=== PATIENT | male | born 1945 | race Caucasian/White ===

== ENCOUNTER → 2018-01-20 09:58 | Outpatient (CLI) | payer MEDICARE, SELFPAY ==
--- NOTE | 2018-01-20 10:04 | EKG12_ITS ---
Test Reason : A FLUTTER Blood Pressure : / mmHG Vent. Rate : 103 BPM Atrial Rate : 103 BPM P-R Int : 172 ms QRS Dur : 090 ms QT Int : 354 ms P-R-T Axes : 091 -63 053 degrees QTc Int : 463 ms Atrial flutter with variable block Left axis deviation Pulmonary disease pattern Inferior infarct , age undetermined Abnormal ECG Confirmed by YSOHI DOWNEY, FERMIN ([id number]), book or script editor LYLE CASON ([id number]) on 01/25/2018 3:58:10 PM Referred By: YOSHI Confirmed By:FERMIN BELLE MD
== END ==
PROVIDERS: Family Provider Family Medicine; Visit Provider Internal Medicine Cardiovascular Disease
DX: I48.92 Unspecified atrial flutter (principal)
CPT/HCPCS: 93005

== ENCOUNTER 2018-02-01 05:55 | Day surgery (SDC) | payer MEDICARE, SELFPAY ==
[2018-02-01] VITALS (19 sets, daily range): BP systolic 73–101; BP diastolic 38–79; PULSE 51–101; RESP 16–18; TEMP 35.4–36.1; O2SAT 93–98; BMI 31.7
[2018-02-01 06:31] LABS: Bedside Glucose 170 mg/dL (70-110)
--- NOTE | 2018-02-01 07:57 | COLBX_PTH ---
PATIENT: JONNY HERNANDEZ LOC: EN U#:[id number] AGE/SX: 72/M ROOM: RE02/01/[address]: Dr. Marco Silva MD : 1945 BED: DIS: 02/01/2018 SPEC #: [id number] RECD: 02/01/18 13:07 STATUS: ALFONSO EZ #: [id number] KATHY: 02/01/18 07:[address]: Marco Silva DEPT: SURGICAL PATHOLOGY RECD BY: Santosh Brunner ENTERED: 02/01/18 14:21 SP TYPE: COLON BX OTHR DR: MD Dr. Ashish Case III, Jr., MD Tissues: Ascending colon Procedures: Surgery Specimen Level IV HEADER OPERATION: Colonoscopy with polypectomy PRE-OP DIAGNOSIS: Rectal bleeding TISSUE SUBMITTED: Ascending colon polyp MICROSCOPIC DIAGNOSIS Ascending colon polyp, polypectomy: Fragments of tubular adenoma. SJ:henna 02/02/18 MICROSCOPIC DESCRIPTION Slides are reviewed. GROSS DESCRIPTION Received in fixative is one container labeled with the patient's name and designated ascending colon polyp. The specimen consists of multiple irregular fragments of light nixon soft tissue that in aggregate measure 0.5 x 0.5 x 0.1 cm. The specimen is totally submitted in one cassette. / AM:henna 02/01/18 TC:1 CPT: 23269
--- NOTE | 2018-02-01 08:11 | PCM.OPRPT ---
Problem List (1) Personal history of colonic polyps Status: Acute Report of Operation Date of Procedure: 02/01/18 Pre-Operative Diagnosis: Personal history of colon polyps Post-Operative Diagnosis: Sessile 1.5 cm diameter polyp ascending colon. Scattered pancolonic diverticulosis with concentrated diverticulosis of the sigmoid colon Surgery/Procedure Performed:: Colonoscopy with hot snare polypectomy Description of Surgical Findings:: Timeout and informed consent was obtained. 72-year-old gentleman was taken to the endoscopy suite. He was placed in a left lateral decubitus position. Because of relative hypotension preoperatively he received 1 L of IV fluid was already on his second liter fluid. Throughout the procedure in aliquots he received a total of 75 mg Demerol and 2.5 mg of Versed is intravenous sedation. Digital rectal exam demonstrated some mild hemorrhoidal changes. Prostate seemed to be very smooth and diminutive. Flexible colonoscope inserted the rectum advanced to the left colon transverse colon with some transabdominal pressure is advanced to the cecum. The cecum ileocecal valve area was nicely achieved. Bowel prep was adequate there was still some liquid stool located throughout the colon but that could be mostly aspirated. As the scope was withdrawn in the ascending colon close to the hepatic flexure there was a sessile 1.5 cm diameter polyp. Photograph was obtained. A hot snare was used to piecemeal resect this polyp. Because of the location I did place a hemostatic clip. I felt that good approximation was achieved. The scope was then further withdrawn through the transverse colon descending colon and sigmoid colon. Diverticulosis identified in the sigmoid. The scope was retroflexed in the rectum anorectal verge and hemorrhoids noted. No active bleeding. Excess fluid and air was aspirated free the procedure was completed with the patient tolerating it well. Impression Sessile polyp of the ascending colon close to the hepatic flexure. Pancolonic diverticulosis with concentrated diverticulosis of the sigmoid. Mild hemorrhoidal changes. The patient will be notified of pathology results as they become available. Because of the size positioning and flat nature of the polyp I am recommending a follow-up colonoscopy at 1 year. The patient had both his clopidogrel and Coumadin preprocedure. These will be reinitiated and appropriate timeline. He has relative hypotension ongoing treatment with saline. Cc: Dr. Ashish Silva, III Indications were given at 0744. Procedure started 0747. Cecum reached at 0752.1. Procedure was completed at 0807. Marco Silva M.D., F.A.C.S. Type of Anesthesia:: IV Sedation
== END 2018-02-01 09:50 | disposition home or self-care (01) ==
LOC: EN 05:58 → AC 05:58
PROVIDERS: Family Provider Family Medicine; Visit Provider Surgery
PROC: 0DJD8ZZ Inspection of Lower Intestinal Tract, Via Natural or Artificial Opening Endoscopic (ICD-10-PCS; CPT 45378; principal; 2018-02-01 06:55)
DX: D12.2 Benign neoplasm of ascending colon (principal); K57.30 Diverticulosis of large intestine without perforation or abscess without bleeding; I95.9 Hypotension, unspecified; K64.9 Unspecified hemorrhoids; I11.0 Hypertensive heart disease with heart failure; I50.22 Chronic systolic (congestive) heart failure; I25.10 Atherosclerotic heart disease of native coronary artery without angina pectoris; E11.9 Type 2 diabetes mellitus without complications; I48.91 Unspecified atrial fibrillation; I48.92 Unspecified atrial flutter; I25.5 Ischemic cardiomyopathy; E78.5 Hyperlipidemia, unspecified; M10.9 Gout, unspecified; E66.9 Obesity, unspecified; Z79.01 Long term (current) use of anticoagulants; Z79.84 Long term (current) use of oral hypoglycemic drugs; Z79.02 Long term (current) use of antithrombotics/antiplatelets; Z79.899 Other long term (current) drug therapy; Z86.010 Personal history of colon polyps; I25.2 Old myocardial infarction; Z87.891 Personal history of nicotine dependence; Z95.5 Presence of coronary angioplasty implant and graft
CPT/HCPCS: 45385; 82962; 88305; J7120

== ENCOUNTER 2019-02-14 07:09 | Day surgery (SDC) | payer MEDICARE, SELFPAY ==
[2019-02-03 13:56] VITALS: BMI 30.1
[2019-02-14] VITALS (10 sets, daily range): BP systolic 93–117; BP diastolic 69–91; PULSE 71–92; RESP 14–18; TEMP 36.3–36.5; O2SAT 93–100; BMI 30.7
[2019-02-14 07:46] LABS: Bedside Glucose 117 mg/dL (70-110)
--- NOTE | 2019-02-14 08:30 | COLBX_PTH ---
PATIENT: JONNY HERNANDEZ LOC: EN U#:[id number] AGE/SX: 73/M ROOM: RE02/14/[address]: Dr. Marco Silva MD : 1945 BED: DIS: 02/14/2019 SPEC #: [id number] RECD: 02/14/19 09:21 STATUS: ALFONSO EZ #: [id number] KATHY: 02/14/19 08:[address]: Marco Silva DEPT: SURGICAL PATHOLOGY RECD BY: Frandy Desir ENTERED: 02/14/19 11:26 SP TYPE: COLON BX OTHR DR: Dr. Ashish Silva III, MD Tissues: Rectum, NOS Procedures: Surgery Specimen Level IV HEADER OPERATION: Colonoscopy (MOD) PRE-OP DIAGNOSIS: Personal history of colon polyps TISSUE SUBMITTED: Biopsy polyp proximal rectum MICROSCOPIC DIAGNOSIS Proximal rectal polyp, biopsy: Fragments of hyperplastic polyp. AM:henna 3/27/19 MICROSCOPIC DESCRIPTION Slides are reviewed. GROSS DESCRIPTION Received in fixative is one container labeled with the patient's name and designated biopsy polyp proximal rectum. The specimen consists of two irregular fragments of light nixon soft tissue that in aggregate measure 0.5 x 0.3 x 0.1 cm. The specimen is totally submitted in one cassette. / SJ:rg 02/14/19 TC:5 CPT: 83488
--- NOTE | 2019-02-14 09:17 | OP.ENDO_ITS ---
02/14/2019 Ashish Silva [address] [place] [address] Re : Colonoscopy procedure for Tai Holland Dear Dr. Silva This procedure was performed on Thursday, February 14, 2019. My impressions and recommendations are as follows: Impressions : - Decreased sphincter tone and internal hemorrhoids (Grade I) found on digital rectal exam. - Diverticulosis in the entire examined colon. There was no evidence of diverticular bleeding. - The examination was otherwise normal. Small rectal polyp removed - No specimens collected. Recommendations : - Discharge patient to home. - Resume previous diet. - Continue present medications. My office will call with results - Repeat colonoscopy in 5 years for surveillance. My findings are described in the full procedure note, which is enclosed. If I can be of further assistance, please feel free to contact me at Doctor phone number(s): Work: . Sincerely, Marco Silva MD 02/14/2019 9:16:53 AM This report has been signed electronically.
== END 2019-02-14 10:06 | disposition home or self-care (01) ==
LOC: EN 07:10 → AC 07:11
PROVIDERS: Family Provider Family Medicine; PCP Family Medicine; Referring Provider Surgery; Visit Provider Surgery
PROC: 0DJD8ZZ Inspection of Lower Intestinal Tract, Via Natural or Artificial Opening Endoscopic (ICD-10-PCS; CPT 45378; principal; 2019-02-14 08:25)
DX: Z12.11 Encounter for screening for malignant neoplasm of colon (principal); K62.1 Rectal polyp; K64.0 First degree hemorrhoids; K57.30 Diverticulosis of large intestine without perforation or abscess without bleeding; I11.0 Hypertensive heart disease with heart failure; I50.22 Chronic systolic (congestive) heart failure; I25.10 Atherosclerotic heart disease of native coronary artery without angina pectoris; I25.5 Ischemic cardiomyopathy; I48.92 Unspecified atrial flutter; E11.9 Type 2 diabetes mellitus without complications; E78.5 Hyperlipidemia, unspecified; Z79.01 Long term (current) use of anticoagulants; Z79.84 Long term (current) use of oral hypoglycemic drugs; Z79.02 Long term (current) use of antithrombotics/antiplatelets; Z79.899 Other long term (current) drug therapy; Z86.010 Personal history of colon polyps; I25.2 Old myocardial infarction; Z87.891 Personal history of nicotine dependence; Z95.5 Presence of coronary angioplasty implant and graft
CPT/HCPCS: 45380; 82962; 88305; 99152; 99153; J7120

== ENCOUNTER → 2019-02-27 06:59 | Outpatient (CLI) | payer MEDICARE, SELFPAY ==
[2019-02-03 13:56] VITALS: BMI 30.1
[2019-02-14 07:28] VITALS: BMI 30.7
--- NOTE | 2019-02-27 09:02 | STRESSREP ---
Stress Test Report Exercise myocardial perfusion stress test. 73-year-old man with a history of coronary artery disease. Medications: Metformin, Lipitor, Plavix, apixaban, carvedilol, lisinopril. Stress protocol: Resting EKG demonstrates normal sinus rhythm with a rate of 73 bpm normal intervals are noted. Frequent premature atrial complexes are noted. The patient exercised according to regular Daniel protocol for total duration of 4 minutes and 12 seconds the maximum heart rate attained was 150 bpm which was 103% maximum predicted heart rate the maximum workload was 6 metabolic equivalents. At rest there were no ST or T wave changes noted suggest ischemia at peak exercise upsloping ST changes were noted with no meet the criteria for ischemia. The resting blood pressure 114/82 with a peak blood pressure 140/80 mmHg. Myocardial perfusion protocol. 14.4 mCi of technetium 99m sestamibi was injected at rest. Patient exercised according to regular Daniel protocol for total duration of 4 minutes and 12 seconds at peak exercise 44.7 mCi of technetium 99m sestamibi was injected stress images were obtained stress and rest images were reconstructed and compared in the short axis vertical and horizontal long axis. Gated images were also obtained Perfusion SPECT analysis: Review of the stress images demonstrate normal cardiac silhouette size. There is a defect noted involving the apex on the stress as well as reduction of perfusion noted involving the inferior wall from base to apex. The anterior wall and anterolateral wall appear to be well perfused. The resting images demonstrate mild improvement involving the apex as well as the anterior septal wall. In the above suggest a mild amount of apical and anteroseptal ischemia. Gated SPECT analysis: The gated ejection fraction is noted to be 32% suggesting a cardiomyopathy. Conclusion: Cardiomyopathy. Estimated ejection fraction 32%. Previous inferior infarct. Mild anterior septal and mid inferior ischemia.
== END ==
PROVIDERS: Family Provider Family Medicine; Referring Provider Internal Medicine Cardiovascular Disease; Visit Provider Internal Medicine Cardiovascular Disease
DX: I25.10 Atherosclerotic heart disease of native coronary artery without angina pectoris (principal); Z95.5 Presence of coronary angioplasty implant and graft
CPT/HCPCS: 78452; 93017; A9500; A4216

== ENCOUNTER → 2019-03-01 10:09 | Outpatient (CLI) | payer MEDICARE, SELFPAY ==
[2019-02-14 07:28] VITALS: BMI 30.7
[2019-03-01 10:43] LABS: Absolute Lymphocyte Count 1.36 X10^3/ul (0.83-4.51); Absolute Neutrophil Count 4.7 X10^3/uL (2.0-7.7); Basophil# 0.02 X10^3/uL; Basophil% 0.3 % (0-1); Eosinophil# 0.14 X10^3/uL; Hematocrit 49.7 % (40-54); Hemoglobin 16.3 g/dl (13.0-16.5); Lymphocyte # 1.36 X10^3/ul (4.0); Lymphocyte % 19.7 % (19-41); Mean Corp Hgb Conc 32.8 g/gl (32-36); Mean Corpuscular Hgb 29.5 pg (27.0-32.0); Mean Corpuscular Volume 89.9 fL (80-94); Mean Platelet Vol. 9.7 fl (6.2-12.0); Monocyte# 0.62 X10^3/uL; Neutrophil # 4.74 X10^3/uL (2.7-7.7); Neutrophil % 68.9 % (47-70); Platelet Count 177 K/mm3 (150-450); RBC Distribution Width SD 49.3 fl (35.1-43.9); Red Blood Count 5.53 M/mm3 (4.6-6.2); White Blood Count 6.9 K/mm3 (4.4-11.0)
[2019-03-01 10:47] LABS: POSITIVE COUNT NO; POSITIVE DIFFERENTIAL NO; POSITIVE MORPHOLOGY NO
[2019-03-01 11:00] LABS: International Normalized Ratio 1.4; Partial Thromboplast Time 30.1 Seconds (24.1-36.2); Prothrombin Time (Protime)PT. 17.1 SECONDS (11.7-14.9)
[2019-03-01 11:25] LABS: Anion Gap 8 (5-15); BUN 16 mg/dL (7-18); BUN/Creat Ratio 13.6 RATIO (10-20); Calcium,Total 9.3 mg/dL (8.5-10.1); Chloride 106 mmol/L (98-107); Creatinine, Serum 1.18 mg/dL (0.70-1.30); EST Glomerular Filtration Rate 64 mL/min (>60); Est Glom Filt Rate - Afr Amer 77 mL/min (>60); Glucose 197 mg/dL (74-106); Potassium 4.5 mmol/L (3.5-5.1); Sodium Level 139 mmol/L (136-145)
== END ==
PROVIDERS: Family Provider Family Medicine; Referring Provider Internal Medicine Cardiovascular Disease; Visit Provider Internal Medicine Cardiovascular Disease
DX: I11.0 Hypertensive heart disease with heart failure (principal); I50.22 Chronic systolic (congestive) heart failure; I25.5 Ischemic cardiomyopathy; I25.10 Atherosclerotic heart disease of native coronary artery without angina pectoris; R94.39 Abnormal result of other cardiovascular function study; I25.2 Old myocardial infarction; Z95.5 Presence of coronary angioplasty implant and graft
CPT/HCPCS: 36415; 80048; 85025; 85610; 85730

== ENCOUNTER 2019-03-06 09:04 | Day surgery (SDC) | payer MEDICARE, SELFPAY ==
[2019-02-14 07:28] VITALS: BMI 30.7
--- NOTE | 2019-03-01 09:59 | RAD_ITS ---
STUDY: X-RAY CHEST REASON FOR EXAM: Male, 73 years old. Abnormal stress TECHNIQUE: Frontal and lateral views of the chest. COMPARISON: 10/26/2016 FINDINGS: Left basilar atelectasis There is no demonstrated pleural abnormality. Normal size heart. Normal mediastinum and rafal. Normal visualized pulmonary arteries. There is atherosclerotic tortuosity of the aortic arch and descending thoracic aorta. Normal visualized thoracic spine. Normal visualized ribs, clavicles, and shoulders. There is no demonstrated abnormality of the visualized soft tissue structures of the upper abdomen. RAD/Chest PA and Lateral IMPRESSION: Left basilar atelectasis Electronically Signed: Justino Stephenson MD at 10:26 EDT Tel , Service support ,
[2019-03-02 08:35] VITALS: BMI 30.5
--- NOTE | 2019-03-06 10:38 | CL.D_ITS ---
Patient Name: JONNY HERNANDEZ Study Date: 03/06/2019 Performing: Manperet Thompson MD Ht: 72.04 inches 183 cm : 1945 Wt: 224.87 lbs 102 kg Age: 73 Gender: male BSA: 2.24 PROCEDURE(S) PERFORMED MI01-JBR/COR/LV CLINICAL PROFILE AND INDICATIONS Indications: Cardiac Arrythmia Heart Failure: None Stress/Imaging Date: 02/27/2019Stress Test with SPECT MPI: Positive Intermediate Risk CAD Presentations: No Sxs, no angina. CONCLUSIONS Moderate coronary artery disease noted in the left circumflex artery, previously stented LAD which is patent, first diagonal vessel with moderately severe disease. RECOMMENDATIONS Medical therapy DESCRIPTION OF PROCEDURE The patient arrived to the procedure lab. The risks and benefits of the procedure as well as a full d escription of our services here and current unavailability of surgical backup were fully explained to the patient and/or their significant other prior to the catheterization. The Timeout was completed, verifying the correct patient and procedure. The patient's procedural site was prepped and draped in the usual fashion. Local anesthetic was given subcutaneously to right radial region with Lidocaine 2% . Using a modified Seldinger technique, arterial access was obtained via the right radial artery, a 6 Fr sheath was inserted. Left Coronary Artery selective angiography was performed in multiple views u sing a 5 Fr. 4.0 [place] catheter. Right Coronary Artery selective angiography was then performed in mu ltiple views using a 5 Fr. 4.0 [place] catheter. Left Ventriculography was performed in SKY projection using a 5 Fr. [place] catheter. LV to AO pullback pressures were then recorded.The arterial sheath was pulled and a TR Band was applied for hemostasis, 12 cc of air CORONARY ANGIOGRAPHY DOMINANCE: Right Dominant LEFT HEART ASSESSMENT Left Ventricular Ejection Fraction: by LV Gram 45 % Global Hypokinesis - Mild Depressed Left Ventricular systolic function LEFT MAIN: Angiographically normal LEFT ANTERIOR DECENDING ARTERY: Previously placed stent is patent MID LAD: Previously placed stent is patent DIAGONAL 1: Mid - 70 % Stenosis CIRCUMFLEX ARTERY: PROX CIRC: ectactic MID CIRC: Moderate luminal irregularities up to 50% RIGHT CORONARY ARTERY: Mild luminal irregularities less than 30% COMPLICATIONS No Complications PROCEDURE MEDICATIONS Versed 1 mg IV Fentanyl 50 mcg IV Oxygen: 2 L/min via nasal cannula Heparin diluted in 23cc Heparinized saline. Patient given 10cc IA of this solution. 03/06/2019 10:04: 02 Verapamil 2.5mg, Ntg 100mcgs, 2000 units of Heparin diluted in 23cc Heparinized saline. Patient give n 10cc IA of this solution. 03/06/2019 10:04:02 SUMMARY OF HEMODYNAMIC DATA Time AIR REST ECG 09:32:03 AO 70/49 (58) SA 10:06:49 AO 81/55 (64) 10:07:00 AO 91/58 (69) 10:07:06 AO 111/61 (81) 10:08:19 LV 102/0, 9 10:17:17 LV 105/1, 13 10:17:23 LV 110/1, 12 10:19:30 LV 111/2, 18 10:19:36 LVp 108/1, 11 10:19:46 AOp 112/64 (86) 10:19:51 Signed By Manpreet Thompson MD On 03/06/2019 10:38:52 AM Signed By Manpreet Thompson MD On 03/06/2019 10:38:13 AM Manpreet Thompson MD
--- NOTE | 2019-03-06 14:51 | CON.PCM_ITS ---
Reason for Consult Date of Consultation: 03/06/19 Reason for Consultation: Cardiomyopathy History of Present Illness: JONNY HERNANDEZ, is a 73 M who presents to the hospital for a pre-cardiac catheterization evaluation visit.. He is a gentleman with a history of coronary artery disease status post angioplasty and stenting of his left anterior descending artery in September 2016, he also has a history of hypertension and atrial fibrillation status post DC cardioversion in 2016. He returns for routine follow-up visit he denies any chest pain or shortness breath or paroxysmal nocturnal dyspnea pedal edema is been compliant with his medications. He is not had any neck arm or jaw discomfort to suggest angina. He has had no dizziness or diaphoresis near syncope or syncope. His physical exam today demonstrates clear lung huber irregular rate and rhythm and no pedal edema. Had an echocardiogram done which demonstrated global reduction in left ventricular systolic function. Past Medical History Allergies/Adverse Reactions: Allergies Penicillins Allergy (Verified 03/02/19 08:37) Hives Home Medications: Ambulatory Orders Medication Instructions Recorded Glipizide/Metformin HCl 1 tab PO DAILY 10/12/16 [Glipizide-Metformin 5-500 mg] Glipizide/Metformin HCl 2 tab PO QHS 10/12/16 [Glipizide-Metformin 5-500 mg] Atorvastatin Calcium [Lipitor] 80 mg PO QHS 10/26/16 Clopidogrel Bisulfate [Plavix] 75 mg PO DAILY 10/26/16 Cholecalciferol (Vitamin D3) 5,000 unit PO DAILY 03/19/17 [Vitamin D3] apixaban 5 mg tablet 5 mg PO BID #180 tab 02/02/18 carvedilol 6.25 mg tablet 6.25 mg PO BID 07/27/18 lisinopril 5 mg tablet 5 mg PO DAILY 07/27/18 sitagliptin 50 mg tablet 100 mg PO DAILY tab 07/27/18 aspirin 81 mg tablet,delayed 81 mg PO DAILY 02/28/19 release Past Medical History (Chronic Problems): Chronic Problems (Last Updated 03/06/19 @ 12:03 by Samira Fisher) Personal history of colonic polyps (Chronic) Chronic systolic (congestive) heart failure (Chronic) History of coronary artery stent placement (Chronic 10/14/16) PCI-EDIN to LAD w/ 2.5 x 20 mm and 3.0 x 8 mm Synergy Stents 10/14/16 Atherosclerotic heart disease of [place] coronary artery without angina pectoris (Chronic) PCI-EDIN to LAD w/ 2.5 x 20 mm and 3.0 x 8 mm Synergy Stents 10/14/16 Ischemic cardiomyopathy (Chronic) Hyperlipidemia (Chronic) Hx of non-ST elevation myocardial infarction (NSTEMI) (Chronic) Atrial flutter (Chronic) Essential (primary) hypertension (Chronic) DM2 (diabetes mellitus, type 2) (Chronic) Surgical History: TURP - *Family History Paternal Family History: Family History (Last Reviewed 02/03/19 @ 13:55 by Veda Puente) Father CAD (coronary artery disease) Brother CAD (coronary artery disease) Myocardial infarction History Items: Diabetes Sibling Family History: Family History (Last Reviewed 02/03/19 @ 13:55 by Veda Puente) Father CAD (coronary artery disease) Brother CAD (coronary artery disease) Myocardial infarction History Items: Diabetes Smoking Status: Former smoker Alcohol: None Drugs: None Review of Systems - Review of Systems General: Denies: Fever, Night Sweats, Fatigue HEENT: Denies: Vision Change Cardiovascular: Reports: Shortness of Breath, Shortness of Breath with Exertion, Palpitations. Denies: Chest Discomfort, Orthopnea, PND, Peripheral Edema, Lightheadedness, Dizziness, Near Syncope, Syncope Respiratory: Denies: Cough, Sputum Production, Hemoptysis Gastrointestinal: Denies: Hematemesis, Hematochezia, Melena Genitourinary: Denies: Dysuria, Hematuria Skin: Denies: Rash Psychiatric: Denies: Anxiety Endocrine: Denies: Unexplained Weight Loss Hematologic/ Lymphatic: Denies: Anemia Subjectve: gentleman in no apparent distress Objective: Weight: 225 lb Body Mass Index (BMI) 30.5 General: Awake, Alert, Oriented x 3 HEENT: PERRL, EOMI, Sclera Non Icteric Neck: Supple, Good ROM, No Lymph Node Enlargement Lungs: Clear to auscultation Cardiovascular: Irregular Rhythm, Normal S1, Normal S2, No Murmurs, No Rubs, No Gallops Vascular: No Carotid Bruits, Normal Femoral Pulses, Normal Radial Pulses, Normal Dorsalis Pedal Pulse, Normal Posterior Tibial Pulses Abdomen: Bowel Sounds Present, Soft, Non Tender, No HSM, No Organomegaly Extremities: No Cyanosis, No Clubbing, No edema Musculoskeletal: No Erythema Skin: No Ulcers Neurological: No Focal Motor or Sensory Deficit Psych/Mental Status: Appropriate Rhythm: EKG: ECHO: Stress Test: Cardiac Cath: PCI: CT Surgery: Holter monitor: EPS: PPM: CXR: Chest CT Scan: Assessment/Plan 1. Cardiomyopathy * He does have a cardiomyopathy the etiology of which is not entirely clear he did have previous LAD stenosis which was angioplastied and also has atrial fibrillation. The present cardiac catheterization is be undertaken to assess his anatomy and to guide therapy. Depending on the findings further recommendations will be made. * * Thank you for allowing me to participate in the care of your patient. Please don't hesitate to call if any issues arise
== END 2019-03-06 13:05 | disposition home or self-care (01) ==
LOC: CLSP 09:04
PROVIDERS: Family Provider Family Medicine; Referring Provider Internal Medicine Cardiovascular Disease; Visit Provider Internal Medicine Cardiovascular Disease
DX: I49.9 Cardiac arrhythmia, unspecified (principal); I25.10 Atherosclerotic heart disease of native coronary artery without angina pectoris; I48.92 Unspecified atrial flutter; I11.0 Hypertensive heart disease with heart failure; I50.22 Chronic systolic (congestive) heart failure; E78.5 Hyperlipidemia, unspecified; I25.2 Old myocardial infarction; E11.9 Type 2 diabetes mellitus without complications; Z95.5 Presence of coronary angioplasty implant and graft; Z87.891 Personal history of nicotine dependence; Z79.84 Long term (current) use of oral hypoglycemic drugs; Z79.02 Long term (current) use of antithrombotics/antiplatelets; Z79.899 Other long term (current) drug therapy
CPT/HCPCS: 71046; 93458; 99152; 99153; J7040; C1769; C1894; Q9967

== ENCOUNTER → 2020-09-26 10:27 | Outpatient (CLI) | payer MEDICARE, SELFPAY ==
[2020-04-25 10:22] VITALS: BMI 28.6
--- NOTE | 2020-09-26 10:30 | ECHOCS_ITS ---
Reason For Study: CAD Procedure This was a 2D Doppler, Color Flow transthoracic echocardiogram. The study was technically difficult. Contrast injection was performed. Exam performed in department. Left Ventricle Normal LV size. The estimated ejection fraction is 40 %. Mid-anteroseptal : Hypokinetic. Basal inferoseptal: Hypokinetic. There is moderate global hypokinesis of the left ventricle. Right Ventricle Normal RV size. Normal systolic function. Atria Normal left atrium. Normal right atrium. Mitral Valve Normal mitral valve. Tricuspid Valve Normal tricuspid valve. Mild (1+) tricuspid valve insufficiency. Pulmonary artery systolic pressure is 34 mmHg. Aortic Valve Trisinus/trileaflet aortic valve. Mild focal aortic valve calcification. Pulmonic Valve Normal pulmonic valve. Great Vessels Mildly dilated aortic root. The pulmonary artery is normal size. Normal inferior vena cava. Pericardium/Pleural No pericardial effusion. Medication 22 gauge I.V. with prn adaptor inserted into right arm. Diluted definity 4ml given slow IV push to enhance endocardial definition. MMode/2D Measurements & Calculations LVIDd: 5.1 cm IVSd: 0.88 cm Ao root diam: 4.1 cm LVIDs: 4.6 cm LVPWd: 0.94 cm RVDd: 3.8 cm FS: 11.2 % LAV(MOD-bp): 48.5 ml EDV(MOD-sp4): 90.8 ml EDV(MOD-sp2): 105.4 ml LAV(MOD-bp) Indexed: 22.3 ml/m2 ESV(MOD-sp4): 59.2 ml EF(MOD-sp2): 40.2 % LAV(MOD-sp2): 47.8 ml EF(MOD-sp4): 34.8 % LAV(MOD-sp4): 46.4 ml SV(MOD-sp4): 31.6 ml SV(MOD-sp2): 42.4 ml LA A4 area: 18.4 cm2 LA dimension(2D): 4.7 cm RA A4 area: 16.2 cm2 Time Measurements MV dec time: 0.32 sec Doppler Measurements & Calculations MV E max daron: 49.1 cm/sec Lat Peak E' Daron: 12.0 cm/sec Med Peak E' Daron: 7.5 cm/sec E/E' lat: 4.1 E/E' med: 6.6 Ao V2 max: 107.4 cm/sec LV V1 max: 92.7 cm/sec PA V2 max: 98.0 cm/sec Ao max P.6 mmHg LV V1 max P.4 mmHg PI end-d daron: 127.3 cm/sec TR max daron: 272.8 cm/sec TR max P.8 mmHg Interpretation Summary Normal LV size. Normal left atrium. The estimated ejection fraction is 40 %. There is moderate global hypokinesis of the left ventricle. Contrast injection was performed. Compared to previous study, the left ventricular systolic function has worsened.. Ordering Physician: Manpreet Thompson Referring Physician: SETH BERTRAND JR Performed By: Angelita Bagley, ISABELLACS, RVT
== END ==
PROVIDERS: Referring Provider Internal Medicine Cardiovascular Disease; Visit Provider Internal Medicine Cardiovascular Disease
DX: I25.10 Atherosclerotic heart disease of native coronary artery without angina pectoris (principal)
CPT/HCPCS: 93306; Q9957; A4216; C8929

== ENCOUNTER → 2020-11-27 09:52 | Outpatient (CLI) | payer MEDICARE, SELFPAY ==
[2020-04-25 10:22] VITALS: BMI 28.6
--- NOTE | 2020-11-27 10:07 | US_ITS ---
STUDY: RENAL ULTRASOUND - COMPLETE REASON FOR EXAM: Male, 75 years old. URGENCY, INCONTINENCE -- GROSS HEMATURIA TECHNIQUE: Ultrasound evaluation of the kidneys was performed with real-time and static lucia-scale imaging. COMPARISON: None. FINDINGS: RIGHT KIDNEY: Normal location of the right kidney, which is normal in size. The right kidney measures 11.9 cm. There is a normal cortex of the right kidney. The renal cortex measures 2.0 cm. 4.0 cm exophytic cyst lower pole the right kidney. 1.4 cm cyst midsection the right kidney. There are no right renal calculi. There is no right hydronephrosis. DISTAL RIGHT URETER: There is non-visualization of the distal right ureter. There is no demonstrated right ureterovesical junction calculus. There is a visualized right ureteral jet. LEFT KIDNEY: Normal location of the left kidney, which is normal in size. The left kidney measures 11.7 cm. There is a normal cortex of the left kidney. The renal cortex measures 1.6 cm. 2 cm parapelvic cyst of the upper pole the left kidney. 2 cm parapelvic cyst lower pole left kidney. There are no left renal calculi. There is no left hydronephrosis. DISTAL LEFT URETER: There is non-visualization of the distal left ureter. There is no demonstrated left ureterovesical junction calculus. There is a visualized left ureteral jet. BLADDER: The distended urinary bladder has a volume of 128 ml. The empty urinary bladder has a volume of ml. There is a normal wall thickness of the distended urinary bladder. There is no demonstrated mass within the urinary bladder. There are no demonstrated bladder calculi. US/Kidney and Bladder IMPRESSION: No hydronephrosis to suggest obstruction. Bilateral renal cysts. Electronically Signed: Eric Padgett MD at 16:53 EST Tel , Service support ,
== END ==
DX: N39.41 Urge incontinence (principal); R31.0 Gross hematuria
CPT/HCPCS: 76770

== ENCOUNTER → 2023-09-02 | Outpatient (CLI) | payer MEDICARE, SELFPAY ==
--- NOTE | 2023-09-02 11:11 | ECHOD_ITS ---
Reason For Study: Cardiomyopathy Procedure This was a 2D Doppler, Color Flow transthoracic echocardiogram. Exam performed in department. Left Ventricle Normal LV size. The left ventricular ejection fraction is 40 %. There is mild global hypokinesis of the left ventricle. Right Ventricle Normal RV size. Normal systolic function. Atria Normal left atrium. Normal right atrium. Mitral Valve Normal mitral valve. Tricuspid Valve Normal tricuspid valve. Mild (1+) tricuspid valve insufficiency. Pulmonary artery systolic pressure is 27 mmHg. Aortic Valve Trisinus/trileaflet aortic valve. Mild focal aortic valve calcification. Pulmonic Valve Normal pulmonic valve. Mild (1+) pulmonic valve insufficiency. Great Vessels Mildly dilated aortic root. The pulmonary artery is normal size. Normal inferior vena cava. Pericardium/Pleural No pericardial effusion. MMode/2D Measurements & Calculations LVIDd: 5.1 cm IVSd: 1.2 cm Ao root diam: 4.0 cm LVIDs: 3.8 cm LVPWd: 1.1 cm RVDd: 3.6 cm FS: 26.0 % LAV(MOD-sp2): 38.7 ml LVAd ap4: 31.2 cm2 LVAd ap2: 28.0 cm2 LVLd ap4: 8.2 cm LVLd ap2: 8.2 cm EDV(MOD-sp4): 99.6 ml EDV(MOD-sp2): 82.6 ml EDV(sp4-el): 100.8 ml EDV(sp2-el): 80.6 ml LVAs ap4: 19.0 cm2 LVAs ap2: 19.0 cm2 LVLs ap4: 6.3 cm LVLs ap2: 7.4 cm ESV(MOD-sp4): 47.2 ml ESV(MOD-sp2): 42.3 ml ESV(sp4-el): 48.9 ml ESV(sp2-el): 41.2 ml EF(MOD-sp4): 52.6 % EF(MOD-sp2): 48.8 % EF(sp4-el): 51.5 % SV(MOD-sp4): 52.4 ml SV(MOD-sp2): 40.3 ml SV(sp4-el): 51.9 ml LA dimension(2D): 3.5 cm LA A4 area: 16.1 cm2 RA A4 area: 17.9 cm2 TAPSE: 1.5 cm Doppler Measurements & Calculations MV E max daron: 37.4 cm/sec Lat Peak E' Daron: 8.5 cm/sec Med Peak E' Daron: 7.9 cm/sec MV A max daron: 75.6 cm/sec E/E' lat: 4.4 E/E' med: 4.7 MV E/A: 0.50 Ao V2 max: 100.1 cm/sec LV V1 max: 75.4 cm/sec PA V2 max: 71.6 cm/sec Ao max P.0 mmHg LV V1 max P.3 mmHg TR max daron: 237.9 cm/sec TR max P.6 mmHg ECHO/Echo Complete Interpretation Summary The left ventricular ejection fraction is 40 %. Normal LV size. Mildly dilated aortic root. Pulmonary artery systolic pressure is 27 mmHg. Compared to previous study, the left ventricular systolic function is the same. . Ordering Physician: Basia Jones Referring Physician: Simba Red Performed By: Grace Thomas RDCS
== END | disposition home or self-care (01) ==
LOC: CVS 11:10
PROVIDERS: PCP Physician Assistant; Referring Provider Nurse Practitioner Gerontology; Visit Provider Nurse Practitioner Gerontology
DX: I25.5 Ischemic cardiomyopathy (principal)
CPT/HCPCS: 93306

== ENCOUNTER 2023-10-11 15:32 | Emergency (ER) | payer MEDICARE, SELFPAY ==
[2023-10-11 15:32] VITALS: BP 94/79; PULSE 58; RESP 16; TEMP 36.6; O2SAT 98; BMI 28.7
--- NOTE | 2023-10-11 18:14 | EX.ED.VIS.UR ---
HPI HPI - URI History of Present Illness Chief Complaint: Nosebleed Informant: patient Narrative Narrative: 78-year-old male with a history of Eliquis and aspirin presenting to the emergency room with epistaxis. Patient states that he started having bleeding this morning and has been stuttering ever since. He went to urgent care and was referred here. Patient states he had a brief nosebleed last week which resolved on its own. Prior to that he has not had any nosebleeds since childhood. Patient placed a tissue in the nose and is noting that it is not currently bleeding. Patient notes that he did have some blood in his throat. ROS [facility] ED Constitutional Constitutional ED: Denies chills or weight loss Eyes Eyes: Denies change in vision or diplopia ENT ENT ED: Reports other Details: Epistaxis ; Denies ear pain, rhinorrhea or sore throat Cardiovascular Cardiovascular: Denies chest pain, orthopnea, palpitations or racing heartbeat Respiratory/Chest Respiratory/Chest: Denies cough, dyspnea or orthopnea Gastrointestinal Gastrointestinal: Denies abdominal pain, diarrhea, nausea or vomiting Genitourinary Genitourinary ED: Denies dysuria, hematuria or urinary frequency Musculoskeletal Musculoskeletal: Denies arthralgias or myalgias Integumentary Denies abscess or rash Neurologic Neurologic: Denies headache(s) or weakness Psychiatric Psychiatric: Denies anxiety, depression, suicidal ideation or suicidal thoughts Endocrine Endocrinology: Denies polydipsia, polyphagia or polyuria Allergic/Immunologic Allergic/Immunologic ED: Denies mouth swelling, tongue swelling or urticaria PFSH PFSH Medical History Atherosclerotic heart disease of [place] coronary artery without angina pectoris Bladder cancer Chronic systolic (congestive) heart failure DM2 (diabetes mellitus, type 2) Essential (primary) hypertension Hx of non-ST elevation myocardial infarction (NSTEMI) (10/14/16) Hyperlipidemia Ischemic cardiomyopathy Paroxysmal atrial flutter (01/2017) Personal history of colonic polyps Unstable angina Home Medications atorvastatin 80 mg tablet 80 mg PO QHS 10/26/16 [History Last Taken 02/01/18 05:00] cholecalciferol (vitamin D3) 125 mcg (5,000 unit) capsule 5,000 unit PO DAILY 03/19/17 [History Last Taken Unknown] apixaban 5 mg tablet 5 mg PO BID #180 tabs 02/02/18 [Rx Last Taken 03/03/19] lisinopril 5 mg tablet 5 mg PO DAILY 07/27/18 [History Last Taken 03/06/19] aspirin 81 mg tablet,delayed release (Adult Aspirin Regimen) 81 mg PO DAILY 02/28/19 [History Last Taken 03/06/19] eplerenone 25 mg tablet 25 mg PO DAILY 03/28/20 [History Last Taken Unknown] sitagliptin phosphate 100 mg tablet 100 mg PO DAILY 04/25/20 [History Last Taken Unknown] glipizide 5 mg-metformin 500 mg tablet 2 tab PO QHS 09/15/21 [History Last Taken Unknown] carvedilol 3.125 mg tablet (Coreg) 3.125 mg PO BID #180 tabs 09/10/22 [Rx Last Taken Unknown] canagliflozin 100 mg tablet (Invokana) 100 mg PO DAILY 07/07/23 [History Last Taken Unknown] Allergy/AdvReac Type Severity Reaction Status Date / Time lidocaine Allergy Angioedema Verified 10/11/23 15:35 Penicillins Allergy Hives Verified 10/11/23 15:35 Family History Father , age 94 CAD (coronary artery disease) Brother , age 65 CAD (coronary artery disease) Myocardial infarction Surgical History History of cardioversion (03/22/17) History of coronary artery stent placement (10/14/16) History of left heart catheterization (03/06/19) Social History Smoking Status: Former smoker second hand exposure: No alcohol intake: never substance use type: does not use caffeine: Yes frequency: 5-6 times per week EXAM Physical Exam Const Vital Signs: 10/11/23 15:32 Temperature 97.8 F Temperature Source Temporal Pulse Rate 58 L Respiratory Rate 16 Blood Pressure 94/79 Blood Pressure Mean 84 Pulse Ox 98 Oxygen Delivery Method Room Air Positive well nourished and well developed General Appearance ED: well developed HEENT Reports normocephalic, head/scalp atraumatic and moist mucous membranes HEENT Narrative: Patient has areas of dry mucosa anterior plexus bilaterally. Left anterior naris demonstrates a half-girard shaped abrasion to the mucosa. I do not appreciate any active bleeding at this time. Eyes PERRL and EOMs intact bilaterally Neck no lymphadenopathy, supple and no JVD Resp normal respiratory effort and clear to auscultation bilaterally Cardio regular rate, regular rhythm and no murmurs GI normal to inspection, nondistended, normoactive bowel sounds and non-tender Palpation: soft Back/Spine no CVA tenderness and normal ROM Extremity normal to inspection General Extremety ED: Negative for edema General Extremity: Negative for edema Neuro oriented x3 and CN's II-XII intact bilaterally Sensorium / Orientation: alert Motor Exam: strength 5/5 throughout Psych mental status grossly normal Mood & Affect: Negative for depressed or tearful Skin no rashes or lesions noted and no wounds MDM MDM MDM Narrative Medical decision making narrative: I explained to the patient the difficulty in predicting nosebleeds. This is Thanksgiving week. He is not actively bleeding. We discussed different treatment options such as nasal packing, TXA Afrin direct pressure. At this point we are going to place a Afrin-soaked cottonball into the naris and hold pressure for 10 minutes with nasal pincers. Then we will apply Vaseline into the naris. He is to avoid any direct trauma. He is to keep the mucosa hydrated with an antibiotic ointment or Vaseline. The patient was advised that he may start to bleed again and require packing. This point appears to be anterior but I cannot rule out a posterior at this point. He notes understanding Discharge Plan Triage Chief Complaint: Nosebleed ED Provider: Mo Pina Dx/Rx/DC Orders Clinical Impression: Anticoagulated, Epistaxis Instructions: ED Epistaxis (Adult) Prescriptions: No Action lisinopril 5 mg tablet 5 mg PO DAILY sitagliptin phosphate 100 mg tablet 100 mg PO DAILY Invokana 100 mg tablet 100 mg PO DAILY glipizide-metformin 5-500 mg tablet 2 tab PO QHS Patient Comments: diabetes Rx Instructions: 1 tab qam, 2 tabs qpm atorvastatin 80 MG tablet 80 mg PO QHS cholecalciferol (vitamin D3) 5,000 UNIT capsule 5,000 unit PO DAILY apixaban 5 MG tablet 5 mg PO BID Qty: 180 3RF aspirin [Adult Aspirin Regimen] 81 mg tablet,delayed release (DR/EC) 81 mg PO DAILY eplerenone 25 mg tablet 25 mg PO DAILY carvedilol [Coreg] 3.125 mg tablet 3.125 mg PO BID Qty: 180 3RF Rx Instructions: must administer with a meal/food Primary Care Provider: Jamie Red Referrals: Figueroa Delacruz MD [Med Staff - Active Staff] - As Needed Jamie Red PA [Primary Care Provider] - Activity Restrictions/Additional Instructions: Should bleeding return I would recommend taking a half cottonball soaked in Afrin and placing it on the inside of the nares and hold direct pressure with the nasal pincers provided. Do not rub the nose and wait 15 minutes. If the bleeding continues or you are worsening please return to emergency I recommend keeping the front of the nose skin moist using antibiotic ointment or Vaseline. Disposition Disposition: Home, Self Care
[2023-10-11] MEDS: Oxymetazoline 0.05% 1 SPRAY SPRAY.BTL 2 SPRAY NASAL (18:30)
--- NOTE | 2023-10-11 18:39 | ED.RN ---
p told physician he could take the packing out himself at home and didn't want to wait. physician ok'd him leaving with packing still in
== END 2023-10-11 18:40 | disposition home or self-care (01) ==
LOC: ED 18:28
PROVIDERS: Emergency Provider Emergency Medicine; PCP Physician Assistant; Visit Provider Emergency Medicine
DX: R04.0 Epistaxis (principal); I50.22 Chronic systolic (congestive) heart failure; E11.9 Type 2 diabetes mellitus without complications; I25.5 Ischemic cardiomyopathy; I25.10 Atherosclerotic heart disease of native coronary artery without angina pectoris; I25.2 Old myocardial infarction; Z87.891 Personal history of nicotine dependence; Z95.5 Presence of coronary angioplasty implant and graft
CPT/HCPCS: 99282

== ENCOUNTER 2024-02-07 08:26 | Day surgery (SDC) | payer MEDICARE, SELFPAY ==
[2024-02-07 09:04] VITALS: BP 114/56; PULSE 70; RESP 16; TEMP 35.8; O2SAT 100; BMI 28.4
[2024-02-07] MEDS: Lactated Ringers 1,000 ML 15 ML IV (09:10)
[2024-02-07 09:30] LABS: Bedside Glucose 177 mg/dL (74-106)
--- NOTE | 2024-02-07 10:07 | HP.PCM_ITS ---
History and Physical Date of Admission: 02/07/24 Chief Complaint: colonoscopy recall letter Is patient in pain?: No Allergies lidocaine Allergy (Verified 01/17/24 08:05) AngioedemaPenicillins Allergy (Verified 01/17/24 08:05) Hives Medications atorvastatin 80 mg tablet 80 mg PO QHS 10/26/16 [History Confirmed 01/17/24] cholecalciferol (vitamin D3) 125 mcg (5,000 unit) capsule 5,000 unit PO DAILY 03/19/17 [History Confirmed 01/17/24] apixaban 5 mg tablet 5 mg PO BID #180 tabs 02/02/18 [Rx Confirmed 01/17/24] lisinopril 5 mg tablet 5 mg PO DAILY 07/27/18 [History Confirmed 01/17/24] aspirin 81 mg tablet,delayed release (Adult Aspirin Regimen) 81 mg PO DAILY 02/28/19 [History Confirmed 01/17/24] eplerenone 25 mg tablet 25 mg PO DAILY 03/28/20 [History Confirmed 01/17/24] sitagliptin phosphate 100 mg tablet 100 mg PO DAILY 04/25/20 [History Confirmed 01/17/24] glipizide 5 mg-metformin 500 mg tablet 2 tab PO QHS 09/15/21 [History Confirmed 01/17/24] canagliflozin 100 mg tablet (Invokana) 100 mg PO DAILY 07/07/23 [History Confirmed 01/17/24] carvedilol 3.125 mg tablet (Coreg) 3.125 mg PO BID #180 tabs 12/06/23 [Rx Confirmed 01/17/24] [facility] Medical History (Updated 01/17/24 @ 05:[address] Marco Silva MD) Atherosclerotic heart disease of [place] coronary artery without angina pectoris Bladder cancer Chronic systolic (congestive) heart failure DM2 (diabetes mellitus, type 2) Essential (primary) hypertension Hx of non-ST elevation myocardial infarction (NSTEMI) (10/14/16) Hyperlipidemia Ischemic cardiomyopathy Paroxysmal atrial flutter (01/2017) Personal history of colonic polyps Unstable angina Surgical History History of cardioversion (03/22/17) History of coronary artery stent placement (10/14/16) History of left heart catheterization (03/06/19) Family History Father , age 94 CAD (coronary artery disease)Brother , age 65 CAD (coronary artery disease) Myocardial infarction Social History Smoking Status: Former smoker second hand exposure: No alcohol intake: never substance use type: does not use caffeine: Yes frequency: 5-6 times per week HPI HPI HPI: 78-year-old gentleman. He received a recall letter for colonoscopy. I have most recently assisted him on February 14, 2019. I Found a small hyperplastic polyp of the rectum on that occasion but on February 01, 2018 I did a snare polypectomy of a sessile 1.5 cm diameter polyp of the ascending colon. He had pancolonic diverticulosis as well. Because of his chronic anticoagulation I had to place a hemostatic clip. Final pathology was a tubular adenoma. He is enjoying a very good quality of life for age 78. No current abdominal pain. No bright red blood per rectum or melena. He did have an episode of epistasis. He is on Eliquis therapy. He required cauterization of this. He walks a mile and 1/2 to 2 miles daily. ROS General General: No weight change, appetite, fatigue, colon cancer, breast cancer or weakness HEENT HEENT: No difficulty swallowing, eye injury, eye surgery, swollen glands or hoarseness Endo Endocrine: Yes diabetes mellitus; No thyroid disease, thyroid cancer, Hair loss, heat intolerance or cold intolerance Skin Skin: No rash or changing moles Musc Musculoskeletal: No back problems, arthritis, rheumatoid arthritis, gout or joint pain Cardio Cardiovascular: Yes heart disease, heart attack and heart stent; No murmur, pacemaker, atrial fibrillation, high blood pressure, palpitations, shortness of breat with exertion or chest pain Psych Psychiatric: No depression, anxiety or hearing voices Resp Respiratory: No shortness of breath, No sleep apnea, No cough, No COPD, No asthma, No emphysema and No wheezing Gastro Gastrointestinal: No abdominal pain, No nausea or vomiting, No diarrhea, No constipation, No blood in stool, No acid reflux, No hemorrhoids, No ulcers, No gallbladder problem and No black,tarry stools Leo Hematologic: Yes blood thinners, No blood disorders, No bleeding, No anemia and No blood clots Neuro Neurologic: No system reviewed and no additional complaints, except as documented, No as per HPI, No abnormal gait, No abnormal hearing, No abnormal movements, No abnormal speech, No behavioral changes, No burning sensations, No confusion, No convulsions, No disequilibrium, No dizziness, No localized weakness, No frequent falls, No headache(s), No lack of coordination, No loss of vision, No memory loss, No numbness, No other visual disturbances, No radicular pain, No restless legs, No sensory deficit, No syncope, No tingling, No tremor(s), No weakness and No other Exam Const General: cooperative, healthy appearing, comfortable and no acute distress HENMT Head: normal to inspection Eyes General: appearance normal, both eyes and all related structures Neck Neck: normal visual inspection Chest Chest palpation & inspection: normal inspection of the chest Resp Effort & Inspection: normal respiratory effort Auscultation: clear to auscultation bilaterally Cardio Rate: regular rate Rhythm: regular rhythm GI Palpation: soft and no hepatosplenomegaly Auscultation: normal bowel sounds Skin General: no rashes or lesions noted Neuro General: patient alert, patient awake and patient oriented x3 Extrem General: no calf tenderness Psych Appearance: grossly normal Assessment and Plan Assessment and Plan (1) Personal history of colonic polyps: Status: Acute Plan: 78-year-old gentleman who is enjoying a very good quality of life. He has a personal history of colon polyps. I do recommend to him a colonoscopy with possible biopsy or polypectomy as indicated. He is on Eliquis therapy and we will have him hold that for 3 days. He has had an opportunity to ask and have q uestions answered. We will schedule and proceed at his discretion. I appreciate the ongoing option of assisting with the surgical care. Copy: VISHNU Womack M.D., F.A.C.S. I have examined the patient and the H&P has been reviewed. There are no clinical changes since date of exam. Marco Silva M.D., F.A.C.S.
[2024-02-07 10:31] VITALS: BP 114/56; BP 96/70; PULSE 56; RESP 16; TEMP 36.2; O2SAT 99
--- NOTE | 2024-02-07 10:32 | OP.COLON_ITS ---
Patient Name: Tai Holland Procedure Date: 02/07/2024 10:01 AM Date of : 1945 Age: 78 Procedure: Colonoscopy Indications: High risk colon cancer surveillance: Personal history of colonic polyps Providers: Marco Silva MD Medicines: See the Anesthesia note for documentation of the administered medications Patient Profile: Last Colonoscopy: January 2019. Complications: No immediate complications. Procedure: Pre-Anesthesia Assessment: - Prior to the procedure, a History and Physical was performed, and patient medications and allergies were reviewed. The patient's tolerance of previous anesthesia was also reviewed. The risks and benefits of the procedure and the sedation options and risks were discussed with the patient. All questions were answered, and informed consent was obtained. Prior Anticoagulants: The patient has taken Eliquis (apixaban), last dose was 2 days prior to procedure. ASA Grade Assessment: III - A patient with severe systemic disease. After reviewing the risks and benefits, the patient was deemed in satisfactory condition to undergo the procedure. After I obtained informed consent, the scope was passed under direct vision. Throughout the procedure, the patient's blood pressure, pulse, and oxygen saturations were monitored continuously. The colonoscope was introduced through the anus and advanced to the cecum, identified by appendiceal orifice and ileocecal valve. The colonoscopy was performed without difficulty. The patient tolerated the procedure well. The quality of the bowel preparation was good. The ileocecal valve and the appendiceal orifice were photographed. Scope In: 10:11:13 AM Scope Withdrawal Time 0 hours 9 minutes 21 seconds Scope Out: 10:27:30 AM Total Procedure Duration Time 0 hours 16 minutes 17 seconds Findings: Hemorrhoids were found on perianal exam. Multiple diverticula were found in the sigmoid colon. The exam was otherwise without abnormality. Impression: - Hemorrhoids found on perianal exam. - Diverticulosis in the sigmoid colon. - The examination was otherwise normal. - No specimens collected. Recommendation: - Discharge patient to home. - Resume previous diet. - Continue present medications. - Repeat colonoscopy in 5 years for surveillance. Procedure Code(s): --- Professional --- 59091, Colonoscopy, flexible; diagnostic, including collection of specimen(s) by brushing or washing, when performed (separate procedure) Diagnosis Code(s): --- Professional --- Z86.010, Personal history of colonic polyps K64.9, Unspecified hemorrhoids K57.30, Diverticulosis of large intestine without perforation or abscess without bleeding CPT copyright 2021 [employer]. All rights reserved. The codes documented in this report are preliminary and upon pathology specialist review may be revised to meet current compliance requirements. Marco Silva MD 02/07/2024 10:32:07 AM This report has been signed electronically. Number of Addenda: 0 Note Initiated On: 02/07/2024 10:01 AM
--- NOTE | 2024-02-07 10:32 | OP.CCLET_ITS ---
02/07/2024 Jamie Red Re : Colonoscopy procedure for Tai Holland Dear Teofilo This procedure was performed on Wednesday, February 07, 2024. My impressions and recommendations are as follows: Impressions : - Hemorrhoids found on perianal exam. - Diverticulosis in the sigmoid colon. - The examination was otherwise normal. - No specimens collected. Recommendations : - Discharge patient to home. - Resume previous diet. - Continue present medications. - Repeat colonoscopy in 5 years for surveillance. My findings are described in the full procedure note, which is enclosed. If I can be of further assistance, please feel free to contact me at Doctor phone number(s): Work: . Sincerely, Marco Silva MD 02/07/2024 10:32:07 AM This report has been signed electronically.
[2024-02-07 10:35] VITALS: BP 101/66; BP 114/56; PULSE 58; RESP 16; O2SAT 99
[2024-02-07 10:40] VITALS: BP 114/56; BP 85/64; PULSE 78; RESP 16; O2SAT 97
[2024-02-07 10:44] VITALS: BP 114/56; BP 91/61; PULSE 75; RESP 16; TEMP 36.5; O2SAT 98
== END 2024-02-07 11:20 | disposition home or self-care (01) ==
LOC: EN 08:26 → AC 10:17
PROVIDERS: PCP Physician Assistant; Referring Provider Physician Assistant; Visit Provider Surgery
PROC: 0DJD8ZZ Inspection of Lower Intestinal Tract, Via Natural or Artificial Opening Endoscopic (ICD-10-PCS; CPT 45378; principal; 2024-02-07 09:25)
DX: Z12.11 Encounter for screening for malignant neoplasm of colon (principal); I11.0 Hypertensive heart disease with heart failure; I50.22 Chronic systolic (congestive) heart failure; I48.19 Other persistent atrial fibrillation; E11.9 Type 2 diabetes mellitus without complications; I25.5 Ischemic cardiomyopathy; K64.9 Unspecified hemorrhoids; I25.10 Atherosclerotic heart disease of native coronary artery without angina pectoris; E78.00 Pure hypercholesterolemia, unspecified; K57.30 Diverticulosis of large intestine without perforation or abscess without bleeding; I25.2 Old myocardial infarction; Z79.01 Long term (current) use of anticoagulants; Z79.82 Long term (current) use of aspirin; Z79.899 Other long term (current) drug therapy; Z79.84 Long term (current) use of oral hypoglycemic drugs; Z87.891 Personal history of nicotine dependence; Z86.010 Personal history of colon polyps; Z95.5 Presence of coronary angioplasty implant and graft
CPT/HCPCS: 45378; 82962; J7120; J2405

== ENCOUNTER 2024-06-08 13:21 | Emergency (ER) | payer MEDICARE, SELFPAY ==
[2024-06-08 13:22] VITALS: BP 125/51; PULSE 92; RESP 14; TEMP 36.6; O2SAT 98; BMI 28.0
--- NOTE | 2024-06-08 13:45 | EDS_ITS ---
HPI History of Present Illness Chief Complaint: Nosebleed Narrative Narrative: Patient presenting today due to a nosebleed. He reports that he had bleeding from the R nostril last week for over an hour, he saw his PCP for this and they gave him a saline spray and told him he had,an infection and also put him on antibiotics. He then had another episode of bleeding today that lasted about an hour, he was able to get the bleeding under control by putting a cotton ball up his nose. He now presents for evaluation. He is on Eliquis due to history of atrial fibrillation. He has had nosebleeds in the past for which he has seen Dr. Byers for. He denies any trauma to his nose. [facility] Medical History Loss of hearing Cancer Hx of carcinoma of bladder High cholesterol Dietary restriction Diverticulosis Former smoker History of echocardiogram History of stress test Cardiology follow-up encounter History of atrial fibrillation Bladder cancer Paroxysmal atrial flutter (01/2017) Personal history of colonic polyps Chronic systolic (congestive) heart failure Atherosclerotic heart disease of [place] coronary artery without angina pectoris Ischemic cardiomyopathy Hyperlipidemia Hx of non-ST elevation myocardial infarction (NSTEMI) (10/14/16) Unstable angina DM2 (diabetes mellitus, type 2) Essential (primary) hypertension Home Medications ?Medication ?Instructions ?Recorded ?Last Taken ?Type atorvastatin 80 mg tablet 80 mg PO QHS 10/26/16 02/01/18 05:00 History cholecalciferol (vitamin D3) 125 5,000 unit PO DAILY 03/19/17 Unknown History mcg (5,000 unit) capsule apixaban 5 mg tablet 5 mg PO BID #180 tabs 02/02/18 02/04/24 Rx lisinopril 5 mg tablet 5 mg PO DAILY 07/27/18 02/07/24 07:30 History aspirin 81 mg tablet,delayed 81 mg PO DAILY 02/28/19 03/06/19 History release (Adult Aspirin Regimen) eplerenone 25 mg tablet 25 mg PO DAILY 03/28/20 Unknown History sitagliptin phosphate 100 mg tablet 100 mg PO DAILY 04/25/20 Unknown History glipizide 5 mg-metformin 500 mg 2 tab PO QHS 09/15/21 Unknown History tablet carvedilol 3.125 mg tablet (Coreg) 3.125 mg PO BID #180 tabs 12/06/23 Unknown Rx Allergy/AdvReac Type Severity Reaction Status Date / Time lidocaine Allergy Angioedema Verified 06/08/24 13:22 Penicillins Allergy Hives Verified 06/08/24 13:22 Family History Father , age 94 CAD (coronary artery disease) Brother , age 65 CAD (coronary artery disease) Myocardial infarction Surgical History Hx of prostatectomy Hx of tonsillectomy Hx of colonoscopy History of left heart catheterization (03/06/19) History of cardioversion (03/22/17) History of coronary artery stent placement (10/14/16) Social History Smoking Status: Former smoker second hand exposure: No alcohol intake: never substance use type: does not use caffeine: Yes frequency: 5-6 times per week ROS ROS ED Constitutional Constitutional ED: Denies chills or fever(s) ENT ENT ED: Reports epistaxis Cardiovascular Cardiovascular: Denies chest pain Respiratory/Chest Respiratory/Chest: Denies dyspnea Gastrointestinal Gastrointestinal: Denies abdominal pain Integumentary Denies rash Neurologic Neurologic: Denies weakness EXAM Physical Exam Const Vital Signs: 06/08/24 13:22 Temperature 97.9 F Temperature Source Temporal Pulse Rate 92 Respiratory Rate 14 Blood Pressure 125/51 H Blood Pressure Mean 75 Pulse Ox 98 Oxygen Delivery Method Room Air Positive well nourished, well developed and no apparent distress General Appearance ED: well developed HEENT Reports normocephalic and head/scalp atraumatic HEENT Narrative: Minimal amount of bleeding to Kiesselbach's plexus on the right, no septal deviation, no septal hematoma, no blood in the posterior pharynx Mouth ED: Yes moist mucous membranes normal Eyes PERRL and EOMs intact bilaterally Neck full ROM and supple Chest Wall inspection of chest normal Resp normal respiratory effort and clear to auscultation bilaterally Cardio regular rate and regular rhythm Back/Spine normal ROM and normal to inspection Extremity normal to inspection and full ROM Neuro oriented x3, moves all extremities, no focal motor deficits and no sensory deficits noted Sensorium / Orientation: awake and alert Psych mental status grossly normal and thought process normal Skin no rashes or lesions noted and no wounds MDM MDM MDM Narrative Medical decision making narrative: Patient presenting today due to right anterior epistaxis. He had an episode last week where it bled for over an hour and saw his PCP for this, he was able to get the bleeding under control. He has been using saline spray intermittently. It began bleeding again today prompting him to come in. There is very minimal bleeding from Gregory box plexus on the right, Modesta's mix was soaked on a cottonball and placed in the right nostril. This was left in place for about 20 minutes and once removed, there is no more active bleeding. However, I do still see an inflamed vessel and this was cauterized with a silver nitrate stick. On reexamination patient still is having no active bleeding from the nose. Therefore, he will be discharged home in stable condition with an ENT referral. I encouraged him to continue the saline nasal sprays, he can also apply a small amount of Vaseline on the inside of his nostrils to help lubricate the area. Discharge Plan Triage Chief Complaint: Nosebleed ED Midlevel Provider: Marcia Hewitt ED Provider: Kizzy Luke Dx/Rx/DC Orders Clinical Impression: Acute anterior epistaxis, Chronic anticoagulation Instructions: ED Epistaxis (Adult) Prescriptions: No Action lisinopril 5 mg tablet 5 mg PO DAILY sitagliptin phosphate 100 mg tablet 100 mg PO DAILY glipizide-metformin 5-500 mg tablet 2 tab PO QHS Patient Comments: diabetes Rx Instructions: 1 tab qam, 2 tabs qpm atorvastatin 80 MG tablet 80 mg PO QHS cholecalciferol (vitamin D3) 5,000 UNIT capsule 5,000 unit PO DAILY apixaban 5 MG tablet 5 mg PO BID Qty: 180 3RF aspirin [Adult Aspirin Regimen] 81 mg tablet,delayed release (DR/EC) 81 mg PO DAILY eplerenone 25 mg tablet 25 mg PO DAILY carvedilol [Coreg] 3.125 mg tablet 3.125 mg PO BID Qty: 180 3RF Rx Instructions: must administer with a meal/food Primary Care Provider: Tish Daily Referrals: Jatin Byers MD [Med Staff - Active Staff] - 3-5 Days if not improving Jamie Red PA [Non-Staff] - Activity Restrictions/Additional Instructions: Follow-up with ENT, return for any worsening of symptoms. Print Language: Citizen Of [place] Disposition Disposition: Home, Self Care Discharge Date/Time: 06/08/24 14:58
[2024-06-08] MEDS: Mixture 30 ML Bottle 10 ML TOPICAL (13:50)
[2024-06-08] MEDS: Silver Nitrate (BKC) 1 EACH TOPICAL (14:35)
== END 2024-06-08 14:58 | disposition home or self-care (01) ==
PROVIDERS: Emergency Provider Emergency Medicine; PCP Clinical Nurse Specialist Adult Health; Visit Provider Emergency Medicine
DX: R04.0 Epistaxis (principal); I11.0 Hypertensive heart disease with heart failure; I50.22 Chronic systolic (congestive) heart failure; I48.91 Unspecified atrial fibrillation; E11.9 Type 2 diabetes mellitus without complications; I25.10 Atherosclerotic heart disease of native coronary artery without angina pectoris; E78.00 Pure hypercholesterolemia, unspecified; Z95.5 Presence of coronary angioplasty implant and graft; Z79.01 Long term (current) use of anticoagulants; Z79.82 Long term (current) use of aspirin; Z79.84 Long term (current) use of oral hypoglycemic drugs; Z79.899 Other long term (current) drug therapy; Z87.891 Personal history of nicotine dependence
CPT/HCPCS: 30901; 99282